=== PATIENT | female | born 1940 | race Caucasian/White ===

== ENCOUNTER → 2019-01-02 14:34 | Outpatient (CLI) | payer MEDICARE, OTHER, SELFPAY ==
--- NOTE | 2019-01-02 | DI.MRI.S_ITS ---
PROCEDURE: MR LUMBAR SPINE WO CON INDICATIONS: Spondylolisthesis, lumbar region TECHNIQUE: Noncontrast sagittal T1 spin echo and T2 fast echo, sagittal STIR, axial T1 and T2 fast spin echo through the lumbar spine. In cases with scoliosis, additional coronal T2 fast spin echo may be performed. COMPARISON: None. FINDINGS: Image quality: Excellent. Alignment and Curvature: There is grade I L1 on L2 retrolisthesis and L3 on L4 and L4 on L5 anterolisthesis. Bone Marrow: Marrow is of normal overall signal. No acute vertebral body compression fractures. Spinal Cord: Conus medullaris terminates at the T12/L1 level. Visualized cord demonstrates normal signal and size. Paraspinous Soft Tissues: No paravertebral masses. L1-L2: There is moderate disc desiccation and height loss. Broad-based disc bulge. Mild facet ligamentum flavum hypertrophy. No canal stenosis. Moderate right and mild left foraminal stenosis. L2-L3: Moderate disc desiccation and height loss. Broad-based disc bulge. Moderate facet ligamentum flavum hypertrophy. Mild canal stenosis. Mild bilateral neuroforaminal stenosis. L3-L4: Anterolisthesis. Severe disc desiccation and height loss. Severe facet ligamentum flavum hypertrophy. Severe canal stenosis. Moderate right and mild left neuroforaminal stenosis. L4-L5: Anterolisthesis. Severe disc desiccation and height loss. Severe facet and ligamentum flavum hypertrophy. Severe canal stenosis. Mild bilateral neuroforaminal stenosis. L5-S1: Severe disc desiccation and height loss. Broad-based disc bulge. No canal stenosis. Moderate facet sclerosis. Moderate bilateral neuroforaminal narrowing. IMPRESSION: 1. Disc desiccation and height loss throughout the lumbar spine overall severe in degree. 2. Multilevel spondylolisthesis. 3. Multilevel mild to moderate neuroforaminal stenosis. 4. Severe canal stenosis at L3-4 secondary to spondylolisthesis and severe facet ligamentum flavum hypertrophy. Dictated by: Taylor Aguilera M.D. on 01/03/2019 at 12:50 Approved by: Taylor Aguilera M.D. on 01/03/2019 at 12:57
== END ==
PROVIDERS: PCP Physician Assistant; Visit Provider Physical Medicine & Rehabilitation
DX: M43.16 Spondylolisthesis, lumbar region (principal); M48.061 Spinal stenosis, lumbar region without neurogenic claudication; M48.07 Spinal stenosis, lumbosacral region
CPT/HCPCS: 72148

== ENCOUNTER → 2019-07-06 16:04 | Outpatient (CLI) | payer MEDICARE, OTHER, SELFPAY | PROVIDERS: PCP Physician Assistant; Visit Provider Specialist | DX: R30.0 Dysuria (principal) | CPT/HCPCS: 87077; 87086; 87186 ==

== ENCOUNTER → 2019-09-06 10:41 | Outpatient (CLI) | payer MEDICARE, OTHER, SELFPAY ==
[2019-09-06 10:52] LABS: RBC Urine None Seen (0-5/HPF)
[2019-09-06 11:10] LABS: Appearance Urine UA CLEAR; Bilirubin Urine UA NEGATIVE (NEGATIVE); Color Urine UA YELLOW; Glucose Urine UA NEGATIVE (Negative); Ketones Urine UA NEGATIVE (NEGATIVE); Leukocyte Esterase Urine UA NEGATIVE (NEGATIVE); Nitrite Urine UA NEGATIVE (Negative); Occult Blood Urine UA NEGATIVE (Negative); Protein Urine UA NEGATIVE (Negative); Urobilinogen Urine UA 0.2 E.U./dL (0.2)
[2019-09-06 11:32] LABS: pH Urine UA 5.5 (4.5-8.0)
[2019-09-06 11:33] LABS: Bacteria Urine Many (>30); Culture Indicated Urine Specimen Cultured; Squamous Epithelial Cell Urine 1-5 /HPF (0-5/HPF); WBC Urine 1-5/HPF (0-5/HPF)
== END ==
PROVIDERS: PCP Physician Assistant; Referring Provider Specialist; Visit Provider Specialist
DX: R30.0 Dysuria (principal)
CPT/HCPCS: 81001; 87077; 87086; 87186

== ENCOUNTER → 2019-10-27 16:35 | Outpatient (CLI) | payer MEDICARE, OTHER, SELFPAY | PROVIDERS: PCP Physician Assistant; Visit Provider Specialist | DX: R10.2 Pelvic and perineal pain (principal) | CPT/HCPCS: 87077; 87086; 87186 ==

== ENCOUNTER → 2019-12-16 14:21 | Outpatient (CLI) | payer MEDICARE, OTHER, SELFPAY | PROVIDERS: PCP Physician Assistant; Visit Provider Specialist | DX: R30.0 Dysuria (principal) | CPT/HCPCS: 87077; 87086; 87186 ==

== ENCOUNTER → 2021-01-22 11:53 | Outpatient (CLI) | payer MEDICARE, OTHER, SELFPAY ==
[2021-01-22 13:55] LABS: Cancer Antigen 125 7.5 U/mL (0-35)
== END ==
PROVIDERS: PCP Internal Medicine; Referring Provider Specialist; Visit Provider Specialist
DX: N83.202 Unspecified ovarian cyst, left side (principal)
CPT/HCPCS: 36415; 86304; 86305

== ENCOUNTER → 2022-10-08 09:21 | Outpatient (CLI) | payer MEDICARE, OTHER, SELFPAY ==
[2022-10-08 11:18] LABS: Alanine Aminotransferase 22 IU/L (<35); Albumin 4.1 g/dL (3.5-5.0); Albumin Globulin Ratio 1.6 (1.0-2.8); Alkaline Phosphatase 68 U/L (38-126); Aspartate Aminotransferase 32 IU/L (14-36); BUN Creatinine Ratio 22.5 (6-22); Bilirubin Total 0.5 mg/dL (0.2-1.3); Blood Urea Nitrogen 34 mg/dL (7-17); Carbon Dioxide 24 mmol/L (22-32); Chloride 102 mmol/L (98-107); Estimated Glomerular Filt Rate 34 mL/min (>60); Globulin 2.6 g/dL (1.7-4.1); Glucose 86 mg/dL (80-110); HEMOLYSIS < 15 (0-50); Potassium 4.6 mmol/L (3.4-5.1); Sodium 134 mmol/L (137-145); Total Protein 6.7 g/dL (6.3-8.2)
[2022-10-08 11:43] LABS: Cancer Antigen 125 7.3 U/mL (0-35)
== END ==
PROVIDERS: PCP Internal Medicine; Referring Provider Specialist; Visit Provider Specialist
DX: R19.09 Other intra-abdominal and pelvic swelling, mass and lump (principal); N83.202 Unspecified ovarian cyst, left side; N39.0 Urinary tract infection, site not specified; R10.2 Pelvic and perineal pain
CPT/HCPCS: 36415; 80053; 86304